=== PATIENT | female | born 1980 | race Caucasian/White ===

== ENCOUNTER 2016-11-10 19:31 | Emergency (ER) | payer BC, OTHER ==
[~2016-11-10] VITALS: Ht 165.1 cm; Wt 81.6 kg
[~2016-11-10 19:31] MED LIST: FOLI1POW10 PO; ZNTT/150 PO
[2016-11-10 19:35] VITALS: TEMP 36.7; Ht 165.1 cm; Wt 81.6 kg
[2016-11-10] MEDS ORDERED: NORCO 5/325MG HOME PACK PO ONE (21:00)
[2016-11-10] MEDS ORDERED: CEPHALEXIN 500MG HOME PACK 1 EA BTL PO ONE (21:00)
[2016-11-10] MEDS ORDERED: CEPH500C2 PO (21:02)
[2016-11-10] MEDS ORDERED: HYDR-5688 PO (21:02)
[2016-11-10 21:14] VITALS: BP 112/89; PULSE 90; O2SAT 97
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
== END 2016-11-10 21:15 | disposition home or self-care (01) ==
LOC: C.EDB 19:32 → C.EDD 21:15
DX: T24.212A Burn of second degree of left thigh, initial encounter (principal); L08.9 Local infection of the skin and subcutaneous tissue, unspecified; X03.8XXA Other exposure to controlled fire, not in building or structure, initial encounter; Z90.49 Acquired absence of other specified parts of digestive tract; Z72.0 Tobacco use

== ENCOUNTER 2016-11-22 11:31 | Emergency (ER) | payer OTHER ==
[~2016-11-22] VITALS: Ht 165.1 cm; Wt 81.4 kg
[~2016-11-22 11:31] MED LIST changes: -FOLI1POW10 PO; +HYDR-5688 PO; -ZNTT/150 PO
[2016-11-22 11:33] VITALS: BP 122/80; PULSE 85; TEMP 37; O2SAT 99; Ht 165.1 cm; Wt 81.4 kg
[2016-11-22] MEDS ORDERED: CEPH500C PO (11:51)
[2016-11-22] MEDS ORDERED: SULF800T23 PO (11:51)
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
== END 2016-11-22 12:21 | disposition home or self-care (01) ==
LOC: C.EDB 11:33 → C.EDD 12:21
DX: L03.116 Cellulitis of left lower limb (principal); T24.212A Burn of second degree of left thigh, initial encounter; X58.XXXA Exposure to other specified factors, initial encounter; F17.200 Nicotine dependence, unspecified, uncomplicated; Z90.49 Acquired absence of other specified parts of digestive tract

== ENCOUNTER 2017-08-30 22:46 | Emergency (ER) | payer SELFPAY ==
[~2017-08-30] VITALS: Ht 165.1 cm; Wt 85.1 kg
[2017-08-30 23:05] VITALS: TEMP 36.7; Ht 165.1 cm; Wt 85.1 kg
[2017-08-30] MEDS ORDERED: ONDANSETRON INJ 2 MG/ML 2 ML VIAL IV STA (23:14)
[2017-08-30] MEDS ORDERED: SODIUM CHLORIDE 0.9% 1000ML 1,000 ML IV STA (23:14)
[2017-08-30 23:43] LABS: BASO % 0.2 %; BASO ABS # 0.02 K/uL (0-0.2); EOS % 0.4 %; EOS ABS # 0.05 K/uL (0-0.5); HEMATOCRIT 45.8 % (37-47); HEMOGLOBIN 16.4 g/dL (12.0-16.0); IG# 0.04 K/uL (0.00-0.02); LYMPH % 6.7 %; LYMPH ABS # 0.77 K/uL (1.2-3.4); MEAN CELL VOLUME 88.8 fL (80-100); MEAN CORPUSCULAR HEMOGLOBIN 31.8 pg (25-34); MEAN CORPUSCULAR HGB CONC 35.8 g/dl (32-36); MEAN PLATELET VOLUME 10.3 fL (7.4-10.4); MONO % 4.2 %; MONO ABS # 0.48 K/uL (0.11-0.59); NEUT % 88.2 %; NEUT ABS # 10.17 K/uL (1.4-6.5); PLATELET COUNT 310 K/uL (130-400); RED CELL DISTRIBUTION WIDTH CV 12.4 % (11.5-14.5); RED CELL DISTRIBUTION WIDTH SD 39.8 fL (36.4-46.3); WHITE BLOOD COUNT 11.53 K/uL (4.8-10.8)
[2017-08-31 00:02] LABS: ALBUMIN 4.1 gm/dl (3.4-5.0); CALCIUM 8.7 mg/dl (8.5-10.1); CREATININE 0.78 mg/dl (0.60-1.20); POTASSIUM 3.8 mmol/L (3.5-5.1)
[2017-08-31 00:05] LABS: TOTAL PROTEIN 7.8 gm/dl (6.4-8.2)
[2017-08-31] MEDS ORDERED: SODIUM CHLORIDE 0.9% 1000ML 1,000 ML IV STA (00:34)
--- NOTE | 2017-08-31 00:46 | EMERGENCY ROOM VISIT NOTE ---
History First contact with patient: 23:08 Chief Complaint: ABDOMINAL PAIN Stated Complaint: VOMITING,NAUSEA,DIARRHEA,CHILLS,ABD PAINS,FEVER Nursing Triage Summary: nausea and diarrhea for approx 36 hours. tonight vomiting and fever. pt took Motrin for fever. c/o not voiding today. History of Present Illness The patient is a 36 year old female who presents to the Emergency Room with complaints of nausea, vomiting and diarrhea. The patient states that for the past 36 hours, she has had diarrhea. She states that she picked up a friend at the airport 2 days ago. They did eat out at a restaurant and had raw oysters among other foods. She states that later that evening, she developed diarrhea. She has had persistent diarrhea since then and started vomiting earlier this evening. She has had chills and has felt warm. She states that she took her temperature and it was slightly elevated at 99.7F. She has been unable to keep any fluids down since the vomiting started. She does report some abdominal cramping and rates the discomfort a 5/10. Review of Systems A complete 10 point review of systems was reviewed with the patient with pertinent positives and negatives as per history of present illness. All else were negative. Past Medical/Surgical History Medical Problems: (1) Allergic Rhinitis Nos (2) Chronic Tonsillitis (3) Lumbago (4) Pancreatitis (5) Tobacco Use Disorder Surgical Problems: (1) History of cholecystectomy Family History Clotting disorder Social History Smoking Status: Current Every Day Smoker Drug Use: none Marital Status: Housing Status: lives with family Current/Historical Medications Scheduled Ondasetron Odt (Zofran Odt), 4 MG SL Q6H Physical Exam Vital Signs Date Time Temp Pulse Resp B/P (MAP) Pulse Ox O2 Delivery O2 Flow Rate FiO2 08/31/17 01:51 79 17 113/66 98 08/31/17 00:35 82 17 113/66 98 Room Air 08/30/17 23:05 36.7 98 20 119/80 99 Room Air Physical Exam VITALS: Vitals are noted on the nurse's note and reviewed by myself. Vital signs stable. GENERAL: This is a 36-year-old female, in no acute distress, nondiaphoretic, well-developed well-nourished. SKIN: The skin was without rashes. MOUTH: Mucous membranes somewhat dry. HEART: Regular rate and rhythm without murmurs gallops or rubs. LUNGS: Clear to auscultation bilaterally without wheezes, rales or rhonchi. ABDOMEN: Positive bowel sounds x 4. Soft, nontender to palpation. NEURO: Patient was alert and oriented to person place and time. Medical Decision & Procedures Laboratory Results 08/30/17 23:30 Red Blood Count 5.16, Mean Corpuscular Volume 88.8, Mean Corpuscular Hemoglobin 31.8, Mean Corpuscular Hemoglobin Concent 35.8, Mean Platelet Volume 10.3, Neutrophils (%) (Auto) 88.2, Lymphocytes (%) (Auto) 6.7, Monocytes (%) (Auto) 4.2, Eosinophils (%) (Auto) 0.4, Basophils (%) (Auto) 0.2, Neutrophils # (Auto) 10.17, Lymphocytes # (Auto) 0.77, Monocytes # (Auto) 0.48, Eosinophils # (Auto) 0.05, Basophils # (Auto) 0.02 08/30/17 23:30 Test 08/30/17 23:30 08/31/17 01:35 White Blood Count 11.53 K/uL (4.8-10.8) Red Blood Count 5.16 M/uL (4.2-5.4) Hemoglobin 16.4 g/dL (12.0-16.0) Hematocrit 45.8 % (37-47) Mean Corpuscular Volume 88.8 fL (80-100) Mean Corpuscular Hemoglobin 31.8 pg (25-34) Mean Corpuscular Hemoglobin Concent 35.8 g/dl (32-36) Platelet Count 310 K/uL (130-400) Mean Platelet Volume 10.3 fL (7.4-10.4) Neutrophils (%) (Auto) 88.2 % Lymphocytes (%) (Auto) 6.7 % Monocytes (%) (Auto) 4.2 % Eosinophils (%) (Auto) 0.4 % Basophils (%) (Auto) 0.2 % Neutrophils # (Auto) 10.17 K/uL (1.4-6.5) Lymphocytes # (Auto) 0.77 K/uL (1.2-3.4) Monocytes # (Auto) 0.48 K/uL (0.11-0.59) Eosinophils # (Auto) 0.05 K/uL (0-0.5) Basophils # (Auto) 0.02 K/uL (0-0.2) RDW Standard Deviation 39.8 fL (36.4-46.3) RDW Coefficient of Variation 12.4 % (11.5-14.5) Immature Granulocyte % (Auto) 0.3 % Immature Granulocyte # (Auto) 0.04 K/uL (0.00-0.02) Anion Gap 9.0 mmol/L (3-11) Est Creatinine Clear Calc Drug Dose 109.5 ml/min Estimated GFR () 115.0 Estimated GFR (Non- 99.2 BUN/Creatinine Ratio 18.8 (10-20) Calcium Level 8.7 mg/dl (8.5-10.1) Total Bilirubin 0.9 mg/dl (0.2-1) Aspartate Amino Transf (AST/SGOT) 16 U/L (15-37) Alanine Aminotransferase (ALT/SGPT) 25 U/L (12-78) Alkaline Phosphatase 93 U/L (45-117) Total Protein 7.8 gm/dl (6.4-8.2) Albumin 4.1 gm/dl (3.4-5.0) Globulin 3.7 gm/dl (2.5-4.0) Albumin/Globulin Ratio 1.1 (0.9-2) Urine Color YELLOW Urine Appearance ERROR (CLEAR) Urine pH 5.0 (4.5-7.5) Urine Specific [place] 1.025 (1.000-1.030) Urine Protein NEG (NEG) Urine Glucose (UA) NEG (NEG) Urine Ketones 1+ (NEG) Urine Occult Blood 2+ (NEG) Urine Nitrite NEG (NEG) Urine Bilirubin NEG (NEG) Urine Urobilinogen NEG (NEG) Urine Leukocyte Esterase SMALL (NEG) Urine WBC (Auto) 10-30 /hpf (0-5) Urine RBC (Auto) 5-10 /hpf (0-4) Urine Hyaline Casts (Auto) 1-5 /lpf (0-5) Urine Epithelial Cells (Auto) >30 /lpf (0-5) Urine Bacteria (Auto) NEG (NEG) Urine Test NEG (NEG) Medications Administered Medications (Trade) Dose Ordered Sig/Aggie Route Start Time Stop Time Status Last Admin Dose Admin Sodium Chloride 1,000 ml @ 999 mls/hr Q1H1M STAT IV 08/30/17 23:14 08/31/17 00:14 DC 08/30/17 23:31 999 MLS/HR Ondansetron HCl (Zofran Inj) 4 mg NOW STAT IV 08/30/17 23:14 08/30/17 23:16 DC 08/30/17 23:32 4 MG Sodium Chloride 1,000 ml @ 999 mls/hr Q1H1M STAT IV 08/31/17 00:34 08/31/17 01:34 DC 08/31/17 00:37 999 MLS/HR Ondansetron HCl (ZOFRAN ODT 4MG Home Pack) 1 homepack UD ONCE PO 08/31/17 01:45 08/31/17 01:46 DC 08/31/17 01:47 1 HOMEPACK Medical Decision Differential diagnosis includes viral gastroenteritis, foodborne illness, colitis, dehydration, bowel obstruction, among others. The patient is a 36-year-old female who presents today complaining of vomiting and diarrhea. Labs revealed mild leukocytosis of 11.5. This may be due to hemoconcentration, as her hemoglobin is also slightly elevated at 16.4 and patient appears clinically dry. Labs otherwise revealed no concerning electrolyte abnormalities. Patient was treated with 2 L normal saline solution and 4 mg Zofran IV with significant improvement of symptoms. She was able to tolerate oral fluids with no problems. Stool sample was obtained and sent for culture. She will be discharged home with a prescription for Zofran and PCP follow-up. Based on the patient's presentation and work up, I feel the patient is stable for outpatient treatment. The patient was educated to return to the emergency department for any worsening of their current condition or new/concerning symptoms. She will follow up with her PCP. Medication Reconcilliation Current Medication List: was personally reviewed by me Blood Pressure Screening Patient's blood pressure: Normal blood pressure Impression Primary Impression: Nausea, vomiting and diarrhea Departure Information Dispostion Home / Self-Care Condition GOOD Prescriptions Ondasetron Odt (ZOFRAN ODT) 4 Mg Tab 4 MG SL Q6H for Nausea, #12 TAB Prov: Dotty Juarez PA-C 08/31/17 Referrals RV. Zarate MD (PCP) Patient Instructions [facility] Additional Instructions You have been treated in the Emergency Department for your vomiting and diarrhea. Laboratory results and imaging studies have ruled out any emergent causes for your abdominal pain which would warrant admission or surgery. You have been prescribed Zofran to be used for any nausea or vomiting. Take as prescribed. For pain control, you can use the following [id number] medicines (if >12 yo): - Regular strength (325mg/tab) Tylenol (acetaminophen) 2 tabs every 4-6 hours as needed. Do not exceed 12 tablets in a 24 hour period. Avoid taking more than 4 grams (4000 mg) of Tylenol per day. This includes any other sources of acetaminophen you may take on a regular basis. - Regular strength (200 mg/tab) Advil (ibuprofen) 1-2 tabs every 4-6 hours as needed. Do not exceed a dose of 3200 mg per day. Drink plenty of water and stay well hydrated. As with any trip to the Emergency Department, you should follow-up with your Primary Care Provider from today's visit. Return to the emergency department if your symptoms persist despite treatment plan outlined above or if the following symptoms occur: increased fevers, chills , worsening nausea/vomiting, blood in your stool or urine.
[2017-08-31] MEDS ORDERED: ONDA4TAB10 SL (01:37)
[2017-08-31] MEDS ORDERED: ONDANSETRON HOME PACK 4MG OD TAB PO ONE (01:45)
[2017-08-31 01:51] VITALS: BP 113/66; PULSE 79; O2SAT 98
== END 2017-08-31 01:55 | disposition home or self-care (01) ==
LOC: C.EDB 22:47
DX: R11.2 Nausea with vomiting, unspecified (principal); R19.7 Diarrhea, unspecified; F17.200 Nicotine dependence, unspecified, uncomplicated